=== PATIENT | female | born 1995 | race Caucasian/White ===

== ENCOUNTER 2024-01-21 08:00 | Outpatient (CLI) | payer BC ==
[2024-01-21 16:48] LABS: BILIRUBIN,URINE NEGATIVE (NEGATIVE); GLUCOSE, URINE (UA) NEGATIVE (NEGATIVE); KETONES,URINE (UA) NEGATIVE (NEGATIVE); LEUKOCYTE ESTERASE, URINE NEGATIVE (NEGATIVE); NITRITE,URINE NEGATIVE (NEGATIVE); OCCULT BLOOD,URINE NEGATIVE (NEGATIVE); PROTEIN,URINE NEGATIVE (NEGATIVE); UROBILINOGEN,URINE 0.2 (NORMAL) E.U./dL (NORMAL)
[2024-01-21 16:51] LABS: CLARITY,URINE CLEAR (CLEAR)
[2024-01-21 17:00] LABS: BACTERIA,URINE None Seen /HPF (None Seen); RBC,URINE 0-5 /HPF (0-5); SQUAMOUS EPITHELIAL CELL,UR RARE Squamous (<= Few); WBC,URINE 0-3 /HPF (0-5)
== END 2024-01-21 23:59 | disposition home or self-care (01) ==
LOC: LAB.WC 08:00
PROVIDERS: ATTEND Obstetrics & Gynecology
DX: Z34.80 Encounter for supervision of other normal pregnancy, unspecified trimester (principal)
CPT/HCPCS: 81001; 87086

== ENCOUNTER 2024-02-02 14:08 | Outpatient (CLI) | payer BC ==
--- NOTE | 2024-02-02 18:08 | Ultrasound Report ---
PROCEDURE: OB 1st Trimester w/TV INDICATIONS: POSITIVE TEST OUTSIDE/PRIOR DATING DATA: Last menstrual period (LMP): 12/08/2023. LMP-based estimated date of delivery (RADHA): 09/13/2024. First dating scan (date and location): Today. Estimated date of delivery (RADHA) from first dating scan: 09/11/2024. TECHNIQUE: Real-time scanning was performed of the fetus and maternal pelvic organs, with image documentation. Endovaginal scanning was also performed to better visualize the fetus and maternal ovaries. COMPARISON: None. FINDINGS: Parrish-rump length is 1.1 cm. Ultrasound age is 8 weeks and 2 days. Heart rate is 167 bpm. Yolk sac is seen. There are cervical nabothian cysts. Retroverted uterus. Suspected right corpus lute um cyst. Subchorionic hemorrhage measures 2.7 x 2.1 cm. IMPRESSION: Living intrauterine gestation at an ultrasound age of 8 weeks and 2 days. Small subchorionic hemorrhage. Reviewed by: Reza French MD on 02/02/2024 6:07 PM PDT Approved by: Reza French MD on 02/02/2024 6:07 PM PDT Station ID: [id number]
== END 2024-02-02 14:09 | disposition home or self-care (01) ==
LOC: DI 14:08
PROVIDERS: ATTEND Obstetrics & Gynecology
DX: O46.8X1 Other antepartum hemorrhage, first trimester (principal); Z3A.08 8 weeks gestation of pregnancy

== ENCOUNTER 2024-02-24 08:00 | Outpatient (CLI) | payer BC ==
[2024-02-24 18:24] LABS: CHLAMYDIA TRACHOMATIS DNA NEGATIVE (NEGATIVE); NEISSERIA GONORRHOEAE DNA NEGATIVE (NEGATIVE); TRICHOMONAS VAGINALIS DNA NEGATIVE (NEGATIVE)
== END 2024-02-24 23:59 | disposition home or self-care (01) ==
LOC: LAB.WC 08:00
PROVIDERS: ATTEND Obstetrics & Gynecology
DX: Z11.3 Encounter for screening for infections with a predominantly sexual mode of transmission (principal)
CPT/HCPCS: 87491; 87591; 87661

== ENCOUNTER 2024-03-20 14:07 | Outpatient (CLI) | payer BC ==
[2024-03-20 17:53] LABS: BASOPHILS % (AUTO) 0.2 %; EOSINOPHILS # (AUTO) 0.1 10^3/uL (0.0-0.7); EOSINOPHILS % (AUTO) 0.6 %; HCT - HEMATOCRIT 37.9 % (37.0-47.0); HGB - HEMOGLOBIN 12.7 g/dL (12.0-16.0); LYMPHOCYTES # (AUTO) 2.1 10^3/uL (1.5-3.5); LYMPHOCYTES % (AUTO) 25.3 %; MEAN CORPUSCULAR HEMOGLOBIN 28.9 pg (27.0-31.0); MEAN CORPUSCULAR HGB CONC 33.5 g/dL (32.0-36.0); MEAN CORPUSCULAR VOLUME 86.1 fL (81.0-99.0); MONOCYTES # (AUTO) 0.3 10^3/uL (0.0-1.0); MONOCYTES % (AUTO) 3.9 %; NEUTROPHILS # (AUTO) 5.9 10^3/uL (1.5-6.6); NEUTROPHILS % (AUTO) 69.8 %; RED CELL DISTRIBUTION WIDTH 12.4 % (12.0-15.0); WHITE BLOOD COUNT 8.4 x10^3/uL (4.8-10.8)
[2024-03-20 17:54] LABS: SLIDE REVIEW? Indicated
[2024-03-20 18:50] LABS: PLATELET ESTIMATE, MANUAL NORMAL (130-450,000) (NORMAL); PLATELET MORPHOLOGY PLATELET CLUMPING (NORMAL)
[2024-03-21 05:13] LABS: HBsAG SCREEN Negative (Negative); RPR Non Reactive (Non Reactive)
[2024-03-21 07:09] LABS: VARICELLA-ZOSTER AB IGG 582 index (Immune >165)
[2024-03-22 03:38] LABS: HCV AB Non Reactive (Non Reactive)
[2024-03-22 08:08] LABS: HIV SCREEN 4TH GENERATION Non Reactive (Non Reactive)
== END 2024-03-20 14:08 | disposition home or self-care (01) ==
LOC: LAB.N 14:07
PROVIDERS: ATTEND Obstetrics & Gynecology
DX: Z34.80 Encounter for supervision of other normal pregnancy, unspecified trimester (principal); Z36.89 Encounter for other specified antenatal screening
CPT/HCPCS: 36415; 85025; 86592; 86762; 86787; 86803; 86850; 86900; 86901; 87340; 87389

== ENCOUNTER 2024-04-27 17:04 | Outpatient (CLI) | payer BC ==
--- NOTE | 2024-04-28 13:16 | Ultrasound Report ---
PROCEDURE: OB Anatomy Scan INDICATIONS: SUPERVISION OF OUTSIDE/PRIOR DATING DATA: Last menstrual period (LMP): 12/08/2023. LMP-based estimated date of delivery (RADHA): 09/13/2024. First dating scan (date and location): 02/02/2024. Estimated date of delivery (RADHA) from first dating scan: 09/11/2024. The below data below was generated using the clinical RADHA of 09/13/2024 TECHNIQUE: Real-time scanning was performed of the fetus, with image documentation and biometric measurements. Endovaginal scanning: Not performed. COMPARISON: OB ultrasound 02/02/2024 FINDINGS: General: A single living intrauterine gestation is present. Presentation: Variable Placenta: Placental position is posterior, without previa. Amniotic fluid index: 11.6 cm, within normal limits for gestational age. heart rate: 153 beats per minute. Maternal cervical canal: 4.5 cm long; normal length is 2.5 cm or more. biometrics: Biparietal diameter: 4.6 cm, 19 weeks 6 days, 38th percentile Head circumference: 18.5 cm, 20 weeks 6 days, 72nd percentile Abdominal circumference: 15.8 cm, 21 weeks 0 days, 72nd percentile Femur length: 3.4 cm, 20 weeks 3 days, 55th percentile Estimated gestational age from initial scan: 20 weeks 1 day Composite gestational age from present scan: 20 weeks 4 days Estimated weight and percentile: 372 g, 78th percentile Measurement variability in biometric dating: +/- 10 days from 12-20 weeks gestation, +/- 2 weeks from 20-30 weeks gestation, +/- 3 weeks at 30 weeks gestation or later. Anatomic survey: Neuro: Ventricles are normal at less than 10 mm. Cisterna magna is normal at 3-11 mm. Cerebellum i s normal in size and morphology. Nuchal skin fold: Normal at less than 6 mm between 14 and 20 weeks gestational age. Face: Nose and lips, facial profile are normal. Spine: Skin overlying the sacral spine was not well evaluated due to positioning. Heart: Not well evaluated due to positioning. Diaphragm: Diaphragm is intact. Stomach: Left-sided stomach is present. Kidneys: No hydronephrosis. Normal is less than 5 mm in 2nd trimester, less than 7 mm in 3rd trimester. Cord: 3 vessel cord has orthotopic insertion. Bladder: Normal in size. Extremities: All 4 extremities are visualized. IMPRESSION: 1.Single live intrauterine with appropriate interval growth. 2. heart, ventricular outflow tracts, and spine were not well evaluated due to positioning . Recommend follow-up exam. 3. anatomic survey is otherwise within normal limits. Reviewed by: Angel Edmondson MD on 04/28/2024 12:15 PM AKMICHELLE Approved by: Angel Edmondson MD on 04/28/2024 12:15 PM AKMICHELLE Station ID: [id number]
== END 2024-04-27 17:05 | disposition home or self-care (01) ==
LOC: DI 17:04
PROVIDERS: ATTEND Obstetrics & Gynecology
DX: O09.892 Supervision of other high risk pregnancies, second trimester (principal); Z3A.20 20 weeks gestation of pregnancy

== ENCOUNTER 2024-05-11 19:35 | Outpatient (CLI) | payer BC ==
--- NOTE | 2024-05-13 18:24 | Ultrasound Report ---
PROCEDURE: OB Follow up INDICATIONS: SUPERVISION OF OUTSIDE/PRIOR DATING DATA: Last menstrual period (LMP): 12/08/2023. LMP-based estimated date of delivery (RADHA): 09/13/2024. First dating scan (date and location): 02/02/2024. Estimated date of delivery (RADHA) from first dating scan: 09/11/2023. The below data below was generated using the working RADHA of 09/13/2024 TECHNIQUE: Ultrasound of the gravid uterus was performed and recorded. COMPARISON: 04/27/2024 FINDINGS: General: A single live intrauterine gestation is present. Presentation: Variable Placenta: Placental position is posterior without previa. Amniotic fluid index: 10.2 cm, 7 percentile for gestational age. heart rate: 138 beats per minute. Maternal cervical canal: 4.1 cm long; normal length is 2.5 cm or more. Estimated gestational age by working dates: 21 week 1 day Other: Not applicable. IMPRESSION: Single live intrauterine consistent with 21 week 1 day gestation by current ultrasound Spine and cardiac views are suboptimal but grossly within normal limits Reviewed by: Augie Brown MD on 05/13/2024 5:23 PM CHRISTIANNE Approved by: Augie Brown MD on 05/13/2024 5:23 PM AKMICHELLE Station ID: [id number]
== END 2024-05-11 19:36 | disposition home or self-care (01) ==
LOC: DI 19:35
PROVIDERS: ATTEND Obstetrics & Gynecology
DX: O09.892 Supervision of other high risk pregnancies, second trimester (principal); Z3A.21 21 weeks gestation of pregnancy

== ENCOUNTER 2024-09-16 10:36 | Inpatient (IN) ==
[2024-09-16 12:05] LABS: BASOPHILS % (AUTO) 0.2 %; EOSINOPHILS # (AUTO) 0.1 10^3/uL (0.0-0.7); EOSINOPHILS % (AUTO) 0.7 %; HCT - HEMATOCRIT 36.2 % (37.0-47.0); HGB - HEMOGLOBIN 11.4 g/dL (12.0-16.0); LYMPHOCYTES # (AUTO) 2.3 10^3/uL (1.5-3.5); MEAN CORPUSCULAR HEMOGLOBIN 25.9 pg (27.0-31.0); MEAN CORPUSCULAR HGB CONC 31.5 g/dL (32.0-36.0); MEAN CORPUSCULAR VOLUME 82.3 fL (81.0-99.0); MEAN PLATELET VOLUME 11.3 fL (7.9-10.8); MONOCYTES # (AUTO) 0.6 10^3/uL (0.0-1.0); MONOCYTES % (AUTO) 6.6 %; NEUTROPHILS # (AUTO) 6.1 10^3/uL (1.5-6.6); NEUTROPHILS % (AUTO) 67.3 %; PLT - PLATELET COUNT 235 10^3/uL (130-450); RED CELL DISTRIBUTION WIDTH 13.3 % (12.0-15.0); WHITE BLOOD COUNT 9.1 x10^3/uL (4.8-10.8)
[2024-09-16 12:18] LABS: ALBUMIN 3.2 g/dL (3.2-5.5); BILIRUBIN,TOTAL 0.3 mg/dL (0.2-1.0); CALCIUM 9.5 mg/dL (8.5-10.3); CREATININE 0.6 mg/dL (0.6-1.3); POTASSIUM 3.6 mmol/L (3.5-4.5); TOTAL PROTEIN 6.3 g/dL (6.4-8.9)
[2024-09-16] MEDS ORDERED: diphenhydrAMINE INJ 50 MG/ML VIAL IVP PRN (12:23)
[2024-09-16] MEDS ORDERED: lidocaine 1% 20 ML MDV ID PRN (12:23)
[2024-09-16] MEDS ORDERED: METHYLERGONOVINE 0.2 MG/ML VIAL IM PRN (12:23)
[2024-09-16] MEDS ORDERED: miSOPROStoL 200 MCG TABLET PR PRN (12:23)
[2024-09-16] MEDS ORDERED: OXYTOCIN 10 UNIT/ML VIAL IM PRN (12:23)
[2024-09-16] MEDS ORDERED: TRANEXAMIC ACID IN NACL 1,000 MG/100 ML BAG IV PRN (12:23)
[2024-09-16] MEDS ORDERED: TERBUTALINE 1 MG/ML VIAL SUBQ PRN (12:23)
[2024-09-16] MEDS ORDERED: NIFEdipine 10 MG CAPSULE PO PRN ×2 (12:23→21:29)
[2024-09-16] MEDS ORDERED: SODIUM CHLORIDE FLUSH 0.9% 10 ML SYRINGE IVP PRN (12:23)
[2024-09-16] MEDS ORDERED: miSOPROStoL 200 MCG TABLET BC PRN (12:23)
[2024-09-16] MEDS ORDERED: LABETALOL 20 MG/4 ML SYRINGE IVP PRN ×5 (12:23→21:29)
[2024-09-16] MEDS ORDERED: hydrALAZINE INJ 20 MG/ML VIAL IVP PRN ×3 (12:23→21:29)
[2024-09-16] MEDS ORDERED: ONDANSETRON ODT 4 MG TABLET PO PRN (12:23)
--- NOTE | 2024-09-16 12:29 | HISTORY & PHYSICAL EXAMINATION ---
Admit History Visit Reason Visit Reason: Other (labor check, induction of labor for hypertension) Smoking Status: Unknown if ever smoked Other Maternal History Other Maternal History: HPI: Yamile is a 29 yo at 40w3d who is admitted for induction of labor for elevated blood pressures at term. Yamile reports contractions starting around noon today, presented for labor check. Contractions have since spaced out. While in triage, had multiple mild range blood pressures and I recommended that she stay for induction of labor. Denies SMITH, vison changes, upper abdominal pain. No LOF, VB. + FM. Last growth US: 08/20 EFW 3028 g, 66%, vertex, JEYSON 14.8 monitoring form, copied from record: 28 yo LMP: 12/08/2023 RADHA by LMP: 09/13/2024 US:02/02/2024 @ 8+2 (RADHA by US 09/11/24) Final RADHA: 09/13/2024 problems: obesity and fatty liver. Growth ultrasound at 36 weeks of 3028 g, 66 percentile. h/o TIA vs migraines vs seizures starting 2020, all at in [facility]. records reviewed. Saw MFM. Records requested, not received. Patient will send recrods through portal. Likely complex migraines and may not need treatment. Taking LDASA Neurology order placed, has not scheduled. - calling this week(07/27)- booked out until November h/o bladder cancer. Urology appointment pending.- she is scheduled for this as of her 07/27 visit Depression. Recently moved [place] to [place] FOB Bhupendraaaron. not . Daughter James born 01/2014. Yamile works remotely. Jeremías works for [employer]. Blood type: A+ Antibody: negative CBC: PLT WNL HCT 37.9 HGB 12.7 RUB: immune VZV: immune HBsAg: negative HepC: NR RPR/AB-EIA:NR HIV:NR PAP: 02/24/24 normal GC/CT: negative HSV: denies Genetic testing:NIPT- Neg AFP- Neg Covid: unsure Flu: unsure FAS: Placenta: Posterior w/o previa Cord: 3VC JEYSON: 11.6cm wnl EFW: 372g 78th%ile 50gm OGCT: 128 TDAP: 06/15/2024 Breast Pump: given RSV: 08/10/24 given Antibody screen: 3rd trimester CBC: 11.8/35.7%/228 GBS: 08/17/2024 negative Delivery plan: Contraception: Partner vasectomy PE: Vitals signs reviewed Gen: NAD CV: RRR Chest: non labored respirations Abd: gravid , non tender. Ext: trace LE edema SVE: very posterior, unable to get through cervix Bedside US: cephalic presentation confirmed monitoring: FHTs: 140s bpm baseline, + accel, 2 late decelerations on initial presentation but none since, mod variability Thomas: irregular FHTs: Cat 2 Labs: T&S pending. CBC, CMP, pr:cr reviewed. A/P: 29 yo at 40w3d who is admitted for induction of labor for elevated blood pressures at term: - Elevated BP at term (not yet 4 hrs apart) - GBS neg - Rh+ - Rubella immune - Varicella immune - H/o TIA vs complex migraines vs seizures - saw MFM earlier in , thought to likely be complex migraines. No anticoagulation was recommended. Has appointment with neurology scheduled . - H/o depression - Recommended that we proceed with IOL. Consents reviewed and signed. - Preeclampsia labs normal and without symptoms currently. Will monitor. - Pain management per patient request. David Fisher MD HPI Current : Vital Signs Temperature 97.9 F 09/16/24 10:45 Pulse Rate 117 H 09/16/24 10:45 Respiratory Rate 18 09/16/24 10:45 Blood Pressure 140/101 H 09/16/24 11:55 Meds/Allgy Home Medications Ambulatory Orders Medication Instructions Recorded Confirmed aspirin 81 mg tablet,delayed 81 mg PO QDAY 06/09/24 09/09/24 release (Adult Aspirin Regimen) docosahexaenoic acid 200 mg mg PO 06/09/24 09/09/24 capsule ( DHA) famotidine 20 mg tablet (Pepcid) 20 mg PO BID #60 tabs 07/31/24 09/09/24 Allergies Allergies Allergy/AdvReac Type Severity Reaction Status Date / Time No Known Drug Allergies Allergy Verified 08/17/24 11:23 [facility] Medical History Medical History (Updated 09/16/24 @ 13:47 by July Leong CRNA) Fibromyalgia (01/21/24) Heartburn during Snores TIA (transient ischemic attack) (01/21/24) Social History Social History (Updated 06/09/24 @ 18:43 by aMry Smith PA-C) Smoking Status: Never smoker Physical Abdominal Exam Vital Signs: Temp Pulse Resp BP 97.9 F 117 H 18 140/101 H 09/16/24 10:45 09/16/24 10:45 09/16/24 10:45 09/16/24 11:55 Plan for Labor Plan For Labor I expect patient to be DC'd or transferred within 96 hours.: Yes Conclusion/Plan Lab Results Lab results reviewed: Yes 09/16/24 12:00 09/16/24 12:00
[2024-09-16] MEDS ORDERED: miSOPROStoL 100 MCG TABLET BC SCH (13:00)
[2024-09-16 13:20] LABS: CREATININE,URINE 49.6 mg/dL; PROTEIN/CREATININE RATIO,URINE 0.2 (<=0.2)
--- NOTE | 2024-09-16 13:46 | ANESTHESIA PROCEDURE NOTE ---
Pre-Anesthesia VS, & Labs Diagnosis Surgical Diagnosis:: labor pain Procedure Procedure: labor epidural Vitals Vital Signs: Temp Pulse Resp BP 36.6 C 117 H 18 140/101 H 09/16/24 10:45 09/16/24 10:45 09/16/24 10:45 09/16/24 11:55 NPO NPO: Other Is Patient ?: Yes Lab Results Current Lab Results: Laboratory Tests 09/16/24 12:00: WBC 9.1, RBC 4.40, Hgb 11.4 L, Hct 36.2 L, MCV 82.3, MCH 25.9 L, MCHC 31.5 L, RDW 13.3, Plt Count 235, MPV 11.3 H, Neut # (Auto) 6.1, Lymph # (Auto) 2.3, [place] # (Auto) 0.6, Eos # (Auto) 0.1, Baso # (Auto) 0.0, Absolute Nucleated RBC 0.00, Nucleated RBC % 0.0, Sodium 135, Potassium 3.6, Chloride 108, Carbon Dioxide 18 L, Anion Gap 9.0, BUN 5 L, Creatinine 0.6, Estimated GFR (MDRD) 117, Glucose 125 H, Calcium 9.5, Total Bilirubin 0.3, AST 11, ALT 7 L, Alkaline Phosphatase 106, Total Protein 6.3 L, Albumin 3.2, Globulin 3.1, Albumin/Globulin Ratio 1.0 09/16/24 12:00 09/16/24 12:00 Meds/Allgy Home Medications Ambulatory Orders Medication Instructions Recorded Confirmed aspirin 81 mg tablet,delayed 81 mg PO QDAY 06/09/24 09/09/24 release (Adult Aspirin Regimen) docosahexaenoic acid 200 mg mg PO 06/09/24 09/09/24 capsule ( DHA) famotidine 20 mg tablet (Pepcid) 20 mg PO BID #60 tabs 07/31/24 09/09/24 Allergies Allergies Allergy/AdvReac Type Severity Reaction Status Date / Time No Known Drug Allergies Allergy Verified 08/17/24 11:23 [facility] Medical History Medical History (Updated 09/16/24 @ 13:47 by July Leong CRNA) Snores Heartburn during Fibromyalgia (01/21/24) TIA (transient ischemic attack) (01/21/24) Social History Social History (Updated 06/09/24 @ 18:43 by Mary Smith PA-C) Smoking Status: Never smoker POLST POLST Status: Full Code Anesthesia Exam (Expanded) Exam General: Alert, Oriented x3 and Cooperative Dental: WNL Mouth Openin Fingerbreadth Neck Mobility: Normal Mallampati classification: II Thyromental Distance: 4-6 cm Respiratory: Lungs clear Cardiovascular: Regular rate Plan Problem List (1) Heartburn during : (2) Snores: (3) Fibromyalgia: (4) TIA (transient ischemic attack): Plan Anesthesia Type: Epidural Consent for Procedure(s) Verified and Reviewed: Yes Code Status: Attempt Resuscitation ASA Classification ASA classification: 2-Mild systemic disease Is this case an emergency?: No
[2024-09-16] MEDS: miSOPROStoL 100 MCG TABLET VG SCH (14:09)
[2024-09-16] MEDS: SODIUM CHLORIDE FLUSH 0.9% 10 ML SYRINGE IVP SCH (14:09)
--- NOTE | 2024-09-16 15:45 | PHARMACY PROGRESS NOTE ---
Best Possible Medication History Admit Date and Time: 09/16/24 [id number] Home Medications Medication Instructions Recorded Confirmed Type aspirin 81 mg tablet,delayed 81 mg PO QDAY 06/09/24 09/16/24 History release (Adult Aspirin Regimen) famotidine 20 mg tablet (Pepcid) 20 mg PO HS 09/16/24 09/16/24 History vit 168-iron 27 mg-folic 1 cap PO DAILY 09/16/24 09/16/24 History acid 800 mcg-omega3 235 mg capsule (One-A-Day -1) Processed by: Pharmacy (Medication reconciliation completed by Data Entry AssociateEben) Medications reviewed in ED?: No Medication History completed: Yes Patient Interview: Completed Secondary Source(s): Insurance records [facility] Statement: As the person ultimately responsible for medication therapy, providers are able to order a medication from an existing home medication list in [facility] via the "Reconcile Routine" prior to Confirmation of that medication by academic support director. Such practice is discouraged except when the physician, in their clinical judgment, deems that a medical need exists for a medication without regard to previous use.
[2024-09-16] MEDS: fentaNYL 100 MCG/2 ML VIAL IVP PRN (18:03)
[2024-09-16] MEDS: LACTATED RINGERS 1,000 ML IV PRN (18:05)
[2024-09-16] MEDS ORDERED: LIDOCAINE 2%-EPI 1:100000 20 ML MDV ONE (18:08)
[2024-09-16] MEDS ORDERED: ROPIVACAINE 0.2% 200 MG/100 ML BAG EP ONE (18:08)
[2024-09-16] MEDS ORDERED: ROPIVACAINE 0.2% 200 MG/100 ML BAG EP PRN (18:49)
[2024-09-16] MEDS ORDERED: ONDANSETRON 4 MG/2 ML VIAL IVP PRN (18:49)
[2024-09-16] MEDS ORDERED: ePHEDrine 50 MG/ML VIAL IVP PRN (18:49)
[2024-09-16] MEDS ORDERED: NALOXONE 0.4 MG/ML VIAL IVP PRN ×2 (18:49→21:29)
--- NOTE | 2024-09-16 20:35 | PROVIDER PROGRESS NOTE ---
Labor Progress Note Labor Progress Note Labor Progress Note/Additional Text: S: Comfortable with epidural. Discussed repeat SVE and possible AROM and she is agreeable. O: VS reviewed in Centricity SVE: 3.5/90/-2, AROM performed with small amount of meconium stained fluid monitoring: FHTs: 140s bpm baseline, + accel, intermittent small variable decels, periods of minimal variability with moderate variability Mcdade: 2-3 min, not always tracing well Cat 2 A/P: 29 yo at 40w3d admitted for IOL with gHTN: - She received one dose of misoprostol and is now s/p AROM. Plan repeat SVE in 4 hrs or sooner PRN. - Continue to monitor BPs. David Fisher MD
[2024-09-16] MEDS ORDERED: miSOPROStoL 200 MCG TABLET ONE (21:03)
[2024-09-16] MEDS ORDERED: METHYLERGONOVINE 0.2 MG/ML VIAL ONE (21:05)
[2024-09-16] MEDS ORDERED: CARBOPROST TROMETHAMINE 250 MCG/ML VIAL IM ONE (21:05)
[2024-09-16] MEDS: OXYTOCIN/SODIUM CHLORIDE 500 ML IV PRN (21:22)
[2024-09-16] MEDS ORDERED: LABETALOL 5 MG/1 ML 20 ML MDV IVP PRN (21:29)
[2024-09-16] MEDS ORDERED: ACETAMINOPHEN 500 MG TABLET PO PRN (21:29)
[2024-09-16] MEDS ORDERED: HYDROCORTISONE 1% CREAM 28 GM TUBE TOP PRN (21:29)
[2024-09-16] MEDS ORDERED: OXYTOCIN/SODIUM CHLORIDE 500 ML IV PRN (21:29)
[2024-09-16] MEDS ORDERED: oxyCODONE 5 MG TABLET PO PRN (21:29)
[2024-09-16] MEDS ORDERED: WITCH HAZEL/GLYCERIN 1 PAD TOP PRN (21:29)
[2024-09-16] MEDS ORDERED: SIMETHICONE CHEW 80 MG TABLET PO PRN (21:29)
--- NOTE | 2024-09-16 21:35 | DELIVERY NOTE ---
Delivery Note Labor Labor: positive Augmented by ARM Delivery Method Delivery Method: positive Spontaneous vaginal delivery Cervical Ripening Method Cervical Ripening Method: positive Misoprostil (1 dose) Presentation Presentation: positive Vertex and ROWENA - left occiput anterior Nuchal Cord Nuchal Cord: positive None Amniotic Fluid Description Amniotic Fluid Description: positive Moderate meconium Episiotomy Type Episiotomy Type: positive None Laceration Laceration: positive 1st degree [place] : positive Placed in direct skin contact with mother and Stimulated Cord Cord: positive 2 vessels Placenta Placenta: positive Intact and Spontaneous Estimated Blood Loss Estimated Blood Loss (in cc): 50 Post Delivery Events Post Delivery Events: positive No post delivery events Delivery Comments (Free Text/Narrative) Delivery Comments (Free Text/Narrative): I was called to the bedside for patient complete and ready to start pushing. The anterior shoulder delivered easily with maternal effort and gentle downward pressure followed by the posterior shoulder and the remainder of the body. The was placed on the mother's abdomen. After 60 sec the cord was clamped times two and cut. Cord blood collected. Pitocin was started. The placenta was delivered intact. Excellent uterine tone noted. A small first degree laceration was hemostatic and not repaired. David Fisher MD
[2024-09-16] MEDS: FAMOTIDINE 20 MG TABLET PO SCH (22:20)
[2024-09-17] MEDS: ACETAMINOPHEN 500 MG TABLET PO PRN (00:49)
[2024-09-17] MEDS: IBUPROFEN 600 MG TABLET PO PRN (00:50)
[2024-09-17] MEDS: DOCUSATE SODIUM 100 MG CAPSULE PO SCH (09:21)
--- NOTE | 2024-09-17 10:49 | PROVIDER PROGRESS NOTE ---
Subjective Prog Note Date Prog Note Date: 09/17/24 Subjective Subjective: She reports that she is feeling well this morning. Pain is well controlled with current medications. She ambulating without difficulty. She is tolerating a normal diet. She is voiding spontaneously. Lochia reported as normal. No SMITH, vision chnges, upper abdominal pain. Current Medications Current Medications Current Medications: Current Medications Generic Name Dose Route Start Last Admin Trade Name Freq PRN Reason Stop Dose Admin Acetaminophen 1,000 mg 09/16/24 12:23 09/17/24 09:21 Acetaminophen 500 Mg Tablet PO 1,000 mg Q8H PRN Administration Mild Pain or Fever>38C(100.4F) Acetaminophen 1,000 mg 09/16/24 21:29 Acetaminophen 500 Mg Tablet PO Q8HR PRN Mild Pain or Fever>38C(100.4F) Diphenhydramine HCl 25 mg 09/16/24 12:23 Diphenhydramine Inj 50 Mg/Ml Vial IVP Q6H PRN Allergy Symptoms Docusate Sodium 100 mg 09/17/24 09:00 09/17/24 09:21 Docusate Sodium 100 Mg Capsule PO 100 mg BID SHEILA Administration Ephedrine Sulfate 5 mg 09/16/24 18:49 Ephedrine 50 Mg/Ml Vial IVP Q5M PRN For SBP<100;give until SBP>100 Famotidine 20 mg 09/16/24 21:00 09/16/24 22:20 Famotidine 20 Mg Tablet PO 20 mg BID SHEILA Administration Fentanyl 50 mcg 09/16/24 12:23 09/16/24 18:03 Fentanyl 100 Mcg/2 Ml Vial IVP 50 mcg Q1H PRN Administration Severe Pain (score 7-10) Hydralazine HCl 5 - 10 mg 09/16/24 12:23 Hydralazine Inj 20 Mg/Ml Vial IVP Q20M PRN SBP> or= 160 OR DBP> or= 110 Protocol Hydralazine HCl 10 mg 09/16/24 21:29 Hydralazine Inj 20 Mg/Ml Vial IVP .ONCE PRN SBP> or= 160 OR DBP> or= 110 Protocol Hydralazine HCl 5 - 10 mg 09/16/24 21:29 Hydralazine Inj 20 Mg/Ml Vial IVP Q20M PRN SBP >=160 and/or DBP >=110 Protocol Hydrocortisone 1 applic 09/16/24 21:29 Hydrocortisone 1% Cream 28 Gm Tube TOP QID PRN Hemorrhoids Lactated Ringer's 500 mls @ 999 mls/hr 09/16/24 12:23 09/16/24 22:17 Lr IV Infused PRN PRN Infusion Abdominal Pain Oxytocin/Sodium Chloride 500 mls @ 999 mls/hr 09/16/24 12:23 09/16/24 22:40 Pitocin/Sodium Chloride IV Infused PRN PRN Titration POST- HEMORR PREVENTION Protocol 999 MILLIUNIT/MIN Tranexamic Acid 1,000 mg in 100 mls @ 600 mls/hr 09/16/24 12:23 Tranexamic 1,000 Mg/100ml-Nacl IV Q30M PRN EBL >1200mL and within 3hr Ropivacaine 200 mg in 100 mls @ 0 mls/hr 09/16/24 18:49 Naropin 0.2% EP PRN PRN PAIN Protocol Per Protocol Oxytocin/Sodium Chloride 500 mls @ 999 mls/hr 09/16/24 21:29 Pitocin/Sodium Chloride IV PRN PRN POST- HEMORR PREVENTION Protocol 999 MILLIUNIT/MIN Ibuprofen 600 mg 09/16/24 21:29 09/17/24 07:34 Ibuprofen 600 Mg Tablet PO 600 mg Q6HR PRN Administration Moderate Pain (Level 4-6) Labetalol HCl 20 - 80 mg 09/16/24 12:23 Labetalol 20 Mg/4 Ml Syringe IVP Q10M PRN SBP> or= 160 OR DBP> or= 110 Protocol Labetalol HCl 20 mg 09/16/24 12:23 Labetalol 20 Mg/4 Ml Syringe IVP .ONCE PRN SBP> or= 160 OR DBP> or= 110 Protocol Labetalol HCl 20 - 40 mg 09/16/24 12:23 Labetalol 20 Mg/4 Ml Syringe IVP Q10M PRN SBP> or= 160 OR DBP> or= 110 Protocol Labetalol HCl 20 - 80 mg 09/16/24 21:29 Labetalol 5 Mg/1 Ml 20 Ml Mdv IVP Q10M PRN SBP> or= 160 OR DBP> or= 110 Protocol Labetalol HCl 20 - 40 mg 09/16/24 21:29 Labetalol 20 Mg/4 Ml Syringe IVP Q10M PRN SBP> or= 160 OR DBP> or= 110 Protocol Labetalol HCl 20 mg 09/16/24 21:29 Labetalol 20 Mg/4 Ml Syringe IVP .ONCE PRN SBP >=160 and/or DBP >=110 Protocol Lidocaine HCl 20 ml 09/16/24 12:23 Lidocaine 1% 20 Ml Mdv ID 09/19/24 12:23 .ONCE PRN PERINEAL REPAIR Methylergonovine Maleate 0.2 mg 09/16/24 12:23 Methylergonovine 0.2 Mg/Ml Vial IM .ONCE PRN Hemorrhage Misoprostol 600 mcg 09/16/24 12:23 Misoprostol 200 Mcg Tablet BC .ONCE PRN Hemorrhage Misoprostol 800 mcg 09/16/24 12:23 Misoprostol 200 Mcg Tablet MA .ONCE PRN Hemorrhage Naloxone HCl 0.1 mg 09/16/24 18:49 Naloxone 0.4 Mg/Ml Vial IVP Q2M PRN RR<8 Naloxone HCl 0.4 mg 09/16/24 21: Naloxone 0.4 Mg/Ml Vial IVP .ONCE PRN Opioid Overdose Nifedipine 10 - 20 mg 09/16/24 12:23 Nifedipine 10 Mg Capsule PO Q20M PRN SBP> or= 160 OR DBP> or= 110 Protocol Nifedipine 10 - 20 mg 09/16/24 21:29 Nifedipine 10 Mg Capsule PO Q20M PRN SBP >=160 and/or DBP >=110 Protocol Ondansetron HCl 4 mg 09/16/24 12:23 Ondansetron Odt 4 Mg Tablet PO Q4HR PRN Nausea / Vomiting Ondansetron HCl 4 mg 09/16/24 18:49 Ondansetron 4 Mg/2 Ml Vial IVP Q6HR PRN Nausea / Vomiting Oxycodone HCl 5 mg 09/16/24 21:29 Oxycodone 5 Mg Tablet PO Q4HR PRN Severe Pain 6-10 Oxytocin 10 unit 09/16/24 12:23 Oxytocin 10 Unit/Ml Vial IM .ONCE PRN Step One if no IV access. Simethicone 80 mg 09/16/24 21: Simethicone Chew 80 Mg Tablet PO TID PRN Gas Sodium Chloride 10 ml 09/16/24 12:23 Sodium Chloride Flush 0.9% 10 Ml Syringe IVP PRN PRN NEEDED PER PROVIDER ORDERS Sodium Chloride 10 ml 09/16/24 13:00 09/16/24 14:09 Sodium Chloride Flush 0.9% 10 Ml Syringe IVP 10 ml Q8H SHEILA Administration Terbutaline Sulfate 0.25 mg 09/16/24 12:23 Terbutaline 1 Mg/Ml Vial SUBQ .ONCE PRN Tachystole Witch Abigail/Glycerin 1 pad 09/16/24 21:29 Witch Abigail/Glycerin 1 Pad TOP PRN PRN ITCHING Objective Vital Signs/Intake & Output Reviewed Vital Signs: Yes Vital Signs: Vital Signs x48h Temp Pulse Resp BP 09/17/24 09:23 89 112/84 09/17/24 04:43 98.1 F 86 16 124/77 Intake & Output: Intake & Output 09/14/24 09/15/24 09/16/24 09/17/24 23:59 23:59 23:59 23:59 Intake Total 1600 / 1600 500 / 500 Output Total 400 / 400 1000 / 1000 Balance 1200 / 1200 -500 / -500 Weight (kg) 226 lb Objective Comments/Other: GEN: NAD Resp: non-labored respirations ABDOMEN: Soft, non tender. Fundus firm. EXT: trace LE edema. No evidence of DVT. Lab Results 09/16/24 12:00 09/16/24 12:00 Other Labs: Lab Results x24hrs 09/16/24 09/16/24 09/16/24 Range/Units 14:00 12:25 12:00 WBC 9.1 (4.8-10.8) x10^3/uL RBC 4.40 (4.20-5.40) 10^6/uL Hgb 11.4 L (12.0-16.0) g/dL Hct 36.2 L (37.0-47.0) % MCV 82.3 (81.0-99.0) fL MCH 25.9 L (27.0-31.0) pg MCHC 31.5 L (32.0-36.0) g/dL RDW 13.3 (12.0-15.0) % Plt Count 235 (130-450) 10^3/uL MPV 11.3 H (7.9-10.8) fL Neut # (Auto) 6.1 (1.5-6.6) 10^3/uL Lymph # (Auto) 2.3 (1.5-3.5) 10^3/uL [place] # (Auto) 0.6 (0.0-1.0) 10^3/uL Eos # (Auto) 0.1 (0.0-0.7) 10^3/uL Baso # (Auto) 0.0 (0.0-0.1) 10^3/uL Absolute Nucleated RBC 0.00 x10^3/uL Nucleated RBC % 0.0 /100WBC Sodium 135 (135-145) mmol/L Potassium 3.6 (3.5-4.5) mmol/L Chloride 108 (101-111) mmol/L Carbon Dioxide 18 L (21-32) mmol/L Anion Gap 9.0 (6-13) BUN 5 L (6-20) mg/dL Creatinine 0.6 (0.6-1.3) mg/dL Estimated GFR (MDRD) 117 (>89) Glucose 125 H (74-104) mg/dL Calcium 9.5 (8.5-10.3) mg/dL Total Bilirubin 0.3 (0.2-1.0) mg/dL AST 11 (10-42) IU/L ALT 7 L (10-60) IU/L Alkaline Phosphatase 106 (42-121) IU/L Total Protein 6.3 L (6.4-8.9) g/dL Albumin 3.2 (3.2-5.5) g/dL Globulin 3.1 (2.1-4.2) g/dL Albumin/Globulin Ratio 1.0 (1.0-2.2) Urine Creatinine 49.6 mg/dL Ur Total Protein Timed 10 mg/dL Protein/Creatinin Ratio 0.2 (<=0.2) Blood Type A POSITIVE Antibody Screen NEGATIVE Assessment/Plan Problem List (1) care and examination of lactating mother: Impression: - Continue routine care. - H/o complex migraine vs TIA vs seizure - saw MFM ealier in , thought more likely to be complex migraines and neurology follow up recommended but she did not see them during . No anticoagulation was recommended. (2) Gestational hypertension: Impression: BPs normal range since delivery, asymptomatic. Will continue to monitor. (3) History of depression:
--- NOTE | 2024-09-17 20:58 | PROVIDER PROGRESS NOTE ---
Subjective Prog Note Date Prog Note Date: 09/17/24 Prog Note Time: 17:10 Subjective Subjective: sleeping soundly. says she is doing very well as does her RN. Current Medications Current Medications Current Medications: Current Medications Generic Name Dose Route Start Last Admin Trade Name Sinq PRN Reason Stop Dose Admin Acetaminophen 1,000 mg 09/16/24 12:23 09/17/24 18:18 Acetaminophen 500 Mg Tablet PO 1,000 mg Q8H PRN Administration Mild Pain or Fever>38C(100.4F) Acetaminophen 1,000 mg 09/16/24 21:29 Acetaminophen 500 Mg Tablet PO Q8HR PRN Mild Pain or Fever>38C(100.4F) Diphenhydramine HCl 25 mg 09/16/24 12:23 Diphenhydramine Inj 50 Mg/Ml Vial IVP Q6H PRN Allergy Symptoms Docusate Sodium 100 mg 09/17/24 09:00 09/17/24 09:21 Docusate Sodium 100 Mg Capsule PO 100 mg BID SHEILA Administration Ephedrine Sulfate 5 mg 09/16/24 18:49 Ephedrine 50 Mg/Ml Vial IVP Q5M PRN For SBP<100;give until SBP>100 Famotidine 20 mg 09/16/24 21:00 09/16/24 22:20 Famotidine 20 Mg Tablet PO 20 mg BID SHEILA Administration Fentanyl 50 mcg 09/16/24 12:23 09/16/24 18:03 Fentanyl 100 Mcg/2 Ml Vial IVP 50 mcg Q1H PRN Administration Severe Pain (score 7-10) Hydralazine HCl 5 - 10 mg 09/16/24 12:23 Hydralazine Inj 20 Mg/Ml Vial IVP Q20M PRN SBP> or= 160 OR DBP> or= 110 Protocol Hydralazine HCl 10 mg 09/16/24 21:29 Hydralazine Inj 20 Mg/Ml Vial IVP .ONCE PRN SBP> or= 160 OR DBP> or= 110 Protocol Hydralazine HCl 5 - 10 mg 09/16/24 21:29 Hydralazine Inj 20 Mg/Ml Vial IVP Q20M PRN SBP >=160 and/or DBP >=110 Protocol Hydrocortisone 1 applic 09/16/24 21:29 Hydrocortisone 1% Cream 28 Gm Tube TOP QID PRN Hemorrhoids Lactated Ringer's 500 mls @ 999 mls/hr 09/16/24 12:23 09/16/24 22:17 Lr IV Infused PRN PRN Infusion Abdominal Pain Oxytocin/Sodium Chloride 500 mls @ 999 mls/hr 09/16/24 12:23 09/16/24 22:40 Pitocin/Sodium Chloride IV Infused PRN PRN Titration POST- HEMORR PREVENTION Protocol 999 MILLIUNIT/MIN Tranexamic Acid 1,000 mg in 100 mls @ 600 mls/hr 09/16/24 12:23 Tranexamic 1,000 Mg/100ml-Nacl IV Q30M PRN EBL >1200mL and within 3hr Ropivacaine 200 mg in 100 mls @ 0 mls/hr 09/16/24 18:49 Naropin 0.2% EP PRN PRN PAIN Protocol Per Protocol Oxytocin/Sodium Chloride 500 mls @ 999 mls/hr 09/16/24 21:29 Pitocin/Sodium Chloride IV PRN PRN POST- HEMORR PREVENTION Protocol 999 MILLIUNIT/MIN Ibuprofen 600 mg 09/16/24 21:29 09/17/24 13:12 Ibuprofen 600 Mg Tablet PO 600 mg Q6HR PRN Administration Moderate Pain (Level 4-6) Labetalol HCl 20 - 80 mg 09/16/24 12:23 Labetalol 20 Mg/4 Ml Syringe IVP Q10M PRN SBP> or= 160 OR DBP> or= 110 Protocol Labetalol HCl 20 mg 09/16/24 12:23 Labetalol 20 Mg/4 Ml Syringe IVP .ONCE PRN SBP> or= 160 OR DBP> or= 110 Protocol Labetalol HCl 20 - 40 mg 09/16/24 12:23 Labetalol 20 Mg/4 Ml Syringe IVP Q10M PRN SBP> or= 160 OR DBP> or= 110 Protocol Labetalol HCl 20 - 80 mg 09/16/24 21:29 Labetalol 5 Mg/1 Ml 20 Ml Mdv IVP Q10M PRN SBP> or= 160 OR DBP> or= 110 Protocol Labetalol HCl 20 - 40 mg 09/16/24 21:29 Labetalol 20 Mg/4 Ml Syringe IVP Q10M PRN SBP> or= 160 OR DBP> or= 110 Protocol Labetalol HCl 20 mg 09/16/24 21:29 Labetalol 20 Mg/4 Ml Syringe IVP .ONCE PRN SBP >=160 and/or DBP >=110 Protocol Lidocaine HCl 20 ml 09/16/24 12:23 Lidocaine 1% 20 Ml Mdv ID 09/19/24 12:23 .ONCE PRN PERINEAL REPAIR Methylergonovine Maleate 0.2 mg 09/16/24 12:23 Methylergonovine 0.2 Mg/Ml Vial IM .ONCE PRN Hemorrhage Misoprostol 600 mcg 09/16/24 12:23 Misoprostol 200 Mcg Tablet BC .ONCE PRN Hemorrhage Misoprostol 800 mcg 09/16/24 12:23 Misoprostol 200 Mcg Tablet NC .ONCE PRN Hemorrhage Naloxone HCl 0.1 mg 09/16/24 18:49 Naloxone 0.4 Mg/Ml Vial IVP Q2M PRN RR<8 Naloxone HCl 0.4 mg 09/16/24 21: Naloxone 0.4 Mg/Ml Vial IVP .ONCE PRN Opioid Overdose Nifedipine 10 - 20 mg 09/16/24 12:23 Nifedipine 10 Mg Capsule PO Q20M PRN SBP> or= 160 OR DBP> or= 110 Protocol Nifedipine 10 - 20 mg 09/16/24 21:29 Nifedipine 10 Mg Capsule PO Q20M PRN SBP >=160 and/or DBP >=110 Protocol Ondansetron HCl 4 mg 09/16/24 12:23 Ondansetron Odt 4 Mg Tablet PO Q4HR PRN Nausea / Vomiting Ondansetron HCl 4 mg 09/16/24 18:49 Ondansetron 4 Mg/2 Ml Vial IVP Q6HR PRN Nausea / Vomiting Oxycodone HCl 5 mg 09/16/24 21:29 Oxycodone 5 Mg Tablet PO Q4HR PRN Severe Pain 6-10 Oxytocin 10 unit 09/16/24 12:23 Oxytocin 10 Unit/Ml Vial IM .ONCE PRN Step One if no IV access. Simethicone 80 mg 09/16/24 21: Simethicone Chew 80 Mg Tablet PO TID PRN Gas Sodium Chloride 10 ml 09/16/24 12:23 Sodium Chloride Flush 0.9% 10 Ml Syringe IVP PRN PRN NEEDED PER PROVIDER ORDERS Sodium Chloride 10 ml 09/16/24 13:00 09/16/24 14:09 Sodium Chloride Flush 0.9% 10 Ml Syringe IVP 10 ml Q8H SHEILA Administration Terbutaline Sulfate 0.25 mg 09/16/24 12:23 Terbutaline 1 Mg/Ml Vial SUBQ .ONCE PRN Tachystole Witch Abigail/Glycerin 1 pad 09/16/24 21:29 Witch Abigail/Glycerin 1 Pad TOP PRN PRN ITCHING Objective Vital Signs/Intake & Output Vital Signs: Vital Signs x48h Temp Pulse Resp BP 09/17/24 16:36 36.5 C 16 116/73 09/17/24 13:15 36.5 C 91 16 112/72 Intake & Output: Intake & Output 09/14/24 09/15/24 09/16/24 09/17/24 23:59 23:59 23:59 23:59 Intake Total 1600 / 1600 500 / 500 Output Total 400 / 400 1000 / 1000 Balance 1200 / 1200 -500 / -500 Weight (kg) 226 lb Objective General Appearance: positive No acute distress Lab Results 09/16/24 12:00 09/16/24 12:00 Assessment/Plan Problem List (1) care and examination of lactating mother: Impression: resting now. Per RN patient is doing well and should be ready to go home tomorrow. (2) Gestational hypertension: (3) History of depression:
[2024-09-18 06:17] VITALS: O2SAT 99
--- NOTE | 2024-09-18 10:34 | Discharge Summary ---
Discharge Summary Admit Date: 09/16/24 Discharge Date: 09/18/24 Discharging Provider: David Fisher MD HPI History of Present Illness: Admission Diagnosis: - [facility] at 40w3d - Elevated blood pressures - GBS neg - Rh + - Rubella immune - Varicella immune - H/o TIA vs complex migraines vs seizures - H/o depression Discharge Diagnosis: - Same, delivered - gestational hypertension Procedures: Induction of labor, Hospital Course: Yamile is a 29 yo now who presented at 40w3d to L&D for labor check, was noted to have multiple mildly elevated BPs therefore IOL was recommended. She was asymptomatic for preeclampsia and with normal labs. She received one dose of misoprostol followed by [facility]OM. She had an uncomplicated , EBL 50cc. course uncomplicated. Blood pressures normal range after delivery. Condition on Discharge: SUBJECTIVE: day 2 She feels well. Pain is well controlled with current medications. The baby is doing well. Baby is feeding via . She is ambulating well, tolerating normal diet, urinating without difficulty. Lochia is reported as normal. Denies SMITH, vision changes, upper abdominal pain. OBJECTIVE: Vital signs reviewed GENERAL: NAD CHEST: non labored respirations ABD: soft, non tender, fundus firm EXT: trace lower extremity edema; No evidence of DVT LAB & IMAGING STUDIES: See below PLAN: Plan for discharge home with follow up in clinic at 1 week . Reviewed home care instructions and medications. Patient counseled regarding signs and symptoms of infection, excessive bleeding, vaginal rest and activity restrictions. Planning for vasectomy for contraception (not yet scheduled), can discuss options for interim contraception if desired at visits. Discussed that additional support is available in our clinic if needed. ALLERGIES Allergies Allergy/AdvReac Type Severity Reaction Status Date / Time No Known Drug Allergies Allergy Verified 08/17/24 11:23 MEDICATIONS Ambulatory Orders Medication Instructions Recorded Confirmed famotidine 20 mg tablet (Pepcid) 20 mg PO HS 09/16/24 09/16/24 vit 168-iron 27 mg-folic 1 cap PO DAILY 09/16/24 09/16/24 acid 800 mcg-omega3 235 mg capsule (One-A-Day -1) LABS 09/16/24 12:00 09/16/24 12:00 TIME SPENT Time Spent in Discharge (Minutes): 20 Discharge Plan Discharge Patient Disposition: 01 Home, Self Care Prescriptions: Continued One-A-Day -1 27 mg iron- 800 mcg-235 mg capsule 1 cap PO DAILY famotidine [Pepcid] 20 mg tablet 20 mg PO HS Discontinued aspirin [Adult Aspirin Regimen] 81 mg tablet,delayed release (DR/EC) 81 mg PO QDAY Diet: Regular Print Language: Uzbek Patient Instructions: Vaginal After, Depression , Change Expect Parents
[2024-09-18 11:11] VITALS: BP 132/74; TEMP 97.9
--- NOTE | 2024-09-18 13:35 | Labor Flowsheet ---
Labor Flowsheet Datetime Report Generated by CPN: 09/18/2024 13:35 Datetime: 09/17/2024 09:24 VITAL SIGNS NBP Sys/Leah/Mean (mmHg): 112 : 84 : 90 Pulse: 89 Datetime: 09/16/2024 23:30 Stage of : Recovery Datetime: 09/16/2024 21:14 SpO2 (%): 100 LaborFlag: Labor Datetime: 09/16/2024 21:13 UTERINE ACTIVITY Monitor Mode: External Quality: Strong Resting Tone (Palpate): Relaxed Contraction Comments: pushing ASSESSMENT A Monitor Mode: External US FHR Baseline Rate : 145 FHR Baseline Changes: No Baseline Change Variability: Moderate 6-25 bpm Accelerations: 15X15 Decelerations: Early; Variable Category: Category II Oxygen Method: Room Air STAGE 2 Pushing: Coached on Pushing; Urge to Push Pushing Position: Pushing with Contractions Pushing Progress: Descent with Pushing Preparation for Delivery: Setup for Delivery Datetime: 09/16/2024 21:10 Monitor Interventions for UA: [place] Adjusted Frequency (min): 140 Duration (sec): 50-70 Monitor Interventions for FHR: Ultrasound Adjusted Provider Reviewed Strip: Yes COMMUNICATION Communication: Provider at Bedside Datetime: 09/16/2024 21:00 VAGINAL EXAM Dilatation (cm): 9.0 Effacement (%): 100 Station: 0 Exam by: [email or web address] Vaginal Bleeding: Normal Show Cervix, Consistency: Soft Cervix, Position: Anterior Vaginal Exam Comments: feeling pressure Dr Fisher informed Datetime: 09/16/2024 20:42 Pain Presence: None/Denies Datetime: 09/16/2024 20:30 Pain Relief Measures: Epidural Given Pain Coping: Sleeping Membranes Rupture Method: Artificial Amniotic Fluid Color: Light Meconium Amniotic Fluid Odor: Normal Anesthesia Level Check: T7 Datetime: 09/16/2024 20:12 Respirations: 16 Membrane Status: Intact Amniotic Fluid Amount: None MATERNAL ASSESSMENT Level of Consciousness: Alert DTR's/Clonus: DTRs 2+; No Clonus Headache: Denies Nausea/Vomiting: Denies RUQ Epigastric Pain: Denies Datetime: 09/16/2024 19:52 Communication Comments: sethi in and SVE Datetime: 09/16/2024 19:40 Temperature (C): 36.8 Patient Position/Activity: Left Tilt I/O Interventions: Sethi Cath Inserted Datetime: 09/16/2024 19:32 Comments: patient on her back with left tilt. Sethi catherter inserted. Datetime: 09/16/2024 18:19 ANESTHESIA Anesthesia Plans: Epidural Epidural Procedure: Cath Placed; Test Dose Datetime: 09/16/2024 18:11 PROCEDURE TIME OUT Procedure Verify: Correct Patient Identity; Correct Side and Site are Marked; Accurate Procedure Co nsent Form; Agreement on Procedure to be Done; Correct Patient Position Epidural Positioning: Sitting Datetime: 09/16/2024 18:00 MEDICATIONS Analgesics/Sedatives: Fentanyl (mcg) @ 50 Datetime: 09/16/2024 17:49 Pattern: Normal: <= 5 Contractions in 10 Minutes Datetime: 09/16/2024 17:00 PAIN Pain Scale: 8 Pain Type: Contraction Pain Location: Abdomen Pain Assessment Comments: nitrous is helping Datetime: 09/16/2024 14:09 Cervical Ripening Agents: Cytotec @ Medication Comments: vaginally Datetime: 09/16/2024 13:30 PATIENT CARE IV/Blood Work: IV Started; Labs Drawn with IV Start; IV Saline Locked Datetime: 09/16/2024 13:00 Comfort Measures: Breathing/Relaxation; Family Support Patient Care Comments: moved to 2103 for admission for induction, gestational HTN new onset
[2024-09-18] MEDS ORDERED: FAMOTIDINE 20 MG TABLET PO SCH (21:00)
[2024-09-19] MEDS ORDERED: [UNRECOGNIZED DRUG - OTHER] PO SCH (09:00)
[2024-09-19] MEDS ORDERED: IRON PO SCH (09:00)
[2024-09-19] MEDS ORDERED: PRENATAL VITAMIN TABLET PO SCH (11:00)
== END 2024-09-18 11:30 | disposition home or self-care (01) | DRG 807 ==
LOC: WFO 10:36 → FBP 10:40 → OBS 09-17 15:36
PROVIDERS: ADMIT Obstetrics & Gynecology; ATTEND Obstetrics & Gynecology
DX: Z3A.40 40 weeks gestation of pregnancy; O99.214 Obesity complicating childbirth; Z37.0 Single live birth; O13.4 Gestational [pregnancy-induced] hypertension without significant proteinuria, complicating childbirth; O70.0 First degree perineal laceration during delivery; O77.0 Labor and delivery complicated by meconium in amniotic fluid